=== PATIENT | female | born 1975 | race Caucasian/White ===

== ENCOUNTER 2017-02-21 11:52 | Emergency (ER) | payer MEDICAID ==
--- NOTE | 2017-02-21 12:21 | EDM.PDOC ---
ED HPI GENERAL MEDICAL PROBLEM - General Chief Complaint: General Stated Complaint: HEAD FEELS FUNNY PREG [id number] Time Seen by Provider: 02/21/17 12:20 Source of Information: Reports: Patient, RN, RN notes reviewed History Limitations: Reports: No limitations - History of Present Illness INITIAL COMMENTS - FREE TEXT/NARRATIVE: Arrives from home by POV with c/o increasing sensation of right head tingling and pressure for 2-3 days. Pt states it is not a "headache", but a sensation. She came to the ER because she has neurofibromatosis, a "life long" brain tumor , and a PRODUCT MGR shunt. She has not followed up with neurology or neurosurgery as she was supposed to for yearly check ups, and is concerned that the her intracranial pressure may be building up again. Pt states she is 31wks and if any thing is wrong with her shunt she wants to take care of it before she has the baby. Denies visual changes, seizures, N/V, numbness or weakness. Onset: gradual Duration: Day(s): (2-3), Constant Location: Reports: head Quality: Reports: Pressure Severity: moderate Improves with: Reports: None Worsens with: Reports: None Context: Denies: Activity, Exercise, Lifting, Sick contact, Trauma Associated Symptoms: Reports: no other symptoms - Related Data Allergies Allergy/AdvReac Type Severity Reaction Status Date / Time bee pollen Allergy Hives Verified 02/21/17 11:57 Home Meds: Home Meds [id number]/FA/Omega3/Dha/Fish Oil [ Gummies] 1 tab PO DAILY 02/21/17 [ History] Past Medical History HEENT History: Reports: Other (see below) Other HEENT History: PRODUCT MGR shunt Cardiovascular History: Reports: None Respiratory History: Reports: None Gastrointestinal History: Reports: None Genitourinary History: Reports: UTI, recurrent [employer] History: Reports: Spontaneous Other OB/BYN History: demise in May Musculoskeletal History: Reports: None Neurological History: Reports: Other (see below) (Neurofibromatosis) Other Neuro History: PRODUCT MGR shunt Psychiatric History: Reports: None Endocrine/Metabolic History: Reports: Other (see below) (familial neurofibromatosis.) Hematologic History: Reports: None Immunologic History: Reports: None Oncologic (Cancer) History: Reports: None Dermatologic History: Reports: None - Infectious Disease History Infectious Disease History: Reports: None - Past Surgical History Head Surgeries/Procedures: Reports: Shunt Social & Family History - Family History Family Medical History: Noncontributory - Tobacco Use Smoking Status *Q: Never Smoker Second Hand Smoke Exposure: No - Caffeine Use Caffeine Use: Reports: Soda - Recreational Drug Use Recreational Drug Use: No - Living Situation & Occupation Living situation: Reports: , with family Occupation: unemployed ED ROS GENERAL - Review of Systems Review Of Systems: ROS reveals no pertinent complaints other than HPI. ED EXAM, GENERAL - Physical Exam Exam: See Below Exam Limited By: No limitations General Appearance: alert, WD/WN, no apparent distress Eye Exam: bilateral eye: EOMI, normal inspection, PERRL Ears: normal external exam, normal canal, hearing grossly normal, normal TMs Nose: normal inspection, normal mucosa, no blood Throat/Mouth: Normal inspection, Normal lips, Normal teeth, Normal gums, Normal oropharynx, Normal voice, No airway compromise Head: atraumatic, normocephalic Neck: normal inspection, supple, non-tender, full range of motion. No: lymphadenopathy (L), lymphadenopathy (R) Respiratory/Chest: no respiratory distress, lungs clear, normal breath sounds, no accessory muscle use, chest non-tender Cardiovascular: normal peripheral pulses, regular rate, rhythm, no edema, no gallop, no JVD, no murmur, no rub GI/Abdominal: normal bowel sounds, soft, non tender, no distention, no abnormal bruit, other (gravid uterus consistent with 31wk gestation, active palpable motion) (Female) Exam: Deferred Rectal (Female) Exam: Deferred Back Exam: normal inspection Extremities: normal inspection Neurological: alert, oriented, CN II-XII intact, normal cognition, normal gait, no motor/sensory deficits Psychiatric: normal affect, normal mood Skin Exam: Warm, Dry, Intact, Normal color, No rash, Other (multiple nodular masses and cafe au lait patches) Lymphatic: no adenopathy Course - Vital Signs Last Recorded V/S: Last Vital Signs Temp 37.1 C 02/21/17 14:07 Pulse 82 02/21/17 14:07 Resp 18 02/21/17 14:07 BP 99/59 L 02/21/17 14:07 Pulse Ox 98 02/21/17 14:07 - Orders/Labs/Meds Orders: Active Orders 24 hr Category Date Time Status Heart Tones [RC] ASDIRECTED Care 02/21/17 13:23 Active Head wo Cont [CT] Stat Exams 02/21/17 12:31 Taken - Radiology Interpretation Free Text/Narrative:: CT Head: (pt consents to CT during with lead shielding. She acknowledges understanding of radiation risks and scan benefits and wishes to proceed with scan): No acute findings, stable and unchanged from prior per Rad. report. CT Results Date: 02/21/17 Departure - Departure Time of Disposition: 14:18 Disposition: Home, Self-Care 01 Condition: good Clinical Impression: with uncertain dates in third trimester Cephalgia Qualifiers: Headache type: unspecified Headache chronicity pattern: acute headache Intractability: not intractable Qualified Code(s): R51 - Headache Instructions: Neurofibromatosis, Adult Forms: ED Department Discharge Additional Instructions: Follow up with your neurologist or neurosurgeon at the next available appointment. - My Orders Last 24 Hours: My Active Orders 02/21/17 12:31 Head wo Cont [CT] Stat 02/21/17 13:23 Heart Tones [RC] ASDIRECTED - Assessment/Plan Last 24 Hours: My Active Orders 02/21/17 12:31 Head wo Cont [CT] Stat 02/21/17 13:23 Heart Tones [RC] ASDIRECTED
[2017-02-21 14:07] VITALS: BP 99/59
--- NOTE | 2017-02-21 14:26 | CT ---
CLINICAL HISTORY: 41 year old gravid (third trimester) female with known "shunt" complaining of rig ht sided head pain and pressure. SCAN TECHNIQUE: Volume acquisition of data from an emergency unenhanced CT scan of the head obtaine d with the patient lying supine on the Siemens multislice scanner [place], [place]. All data archived in the PAC system for storage and study (bone/brain windows). INTERPRETATION: 1. Intraventricular shunt enters frontoparietal skull on the right with tip extending through the an terior horn lateral ventricle into the midline unchanged and no new signs of ventricular dilatation or hydrocephalus since 02 November 2016 exam. 2. *Abnormal focal round masslike density deep in the midbrain, right of midline, that measures 12 m m in diameter also unchanged. 3. Subtle asymmetric decreased attenuation temporal lobe, on the left, appears to have been present on earlier exam. No new supratentorial or posterior fossa mass lesion. 4. No signs of acute intracerebral/intraventricular/subarachnoid bleed and specifically, no sign of abnormal extracerebral/intracranial epidural or subdural hematoma. 5. Uniformly thick bony calvarium and symmetric clear pneumatization of the mastoid/paranasal sinuse s. CONCLUSION: Several abnormalities (see above) but no change since CT scan 11/02/2016.
== END 2017-02-21 14:26 | disposition home or self-care (01) ==
LOC: DL.ED 11:52
DX: O09.523 Supervision of elderly multigravida, third trimester (principal); O99.89 Other specified diseases and conditions complicating pregnancy, childbirth and the puerperium; R51 Headache; Z87.440 Personal history of urinary (tract) infections; Z91.030 Bee allergy status; Z3A.31 31 weeks gestation of pregnancy
CPT/HCPCS: 70450; 99284